=== PATIENT | female | born 1980 | race African-American/Black ===

== ENCOUNTER 2024-11-14 12:50 | Emergency (ER) | payer OTHER ==
[2024-11-14 13:04] LABS: Absolute Basophils 0.1 K/uL (0-0.5); Absolute Eosinophils 0.3 K/uL (0-0.5); Absolute Lymphocytes (CBC) 3.4 K/uL (0.7-4.9); Absolute Monocytes 0.8 K/uL (0.1-1.3); Absolute Neutrophil 6.2 K/uL (1.8-8.0); Basophils % 0.5 % (0-1.3); Eosinophils % 2.9 % (0-4.4); Hematocrit 42.7 % (36.0-45.0); Hemoglobin 14.3 g/dL (12.0-15.0); Lymphocytes % 31.4 % (15.3-44.8); MCH 29.3 pg (27.0-35.0); MCHC 33.5 g/dL (32.0-36.0); MCV 87.6 fL (80-100); MPV 8.5 fL (7.6-11.3); Monocytes % 7.4 % (3.3-12.3); Neutrophils % 57.8 % (41.7-73.7); Nucleated Red Blood Cells % 0.1 % (0-0); Platelets 250 thou/uL (152-406); RBC Red Blood Cell Count 4.88 M/uL (3.86-4.86); Red Cell Distribution Width 15.5 % (12.1-15.2)
[2024-11-14] MEDS ORDERED: HYDROCODONE/APAP 5/325 MG TAB ONE (13:04)
[2024-11-14 13:14] LABS: Specific Gravity > 1.030 (1.005-1.030)
[2024-11-14 13:16] LABS: Specific Gravity > 1.030 (1.005-1.030); Urine Bacteria 20-50 /HPF (<20); Urine Bilirubin NEGATIVE (Negative); Urine Blood Trace (Negative); Urine Clarity Turbid (Clear); Urine Color Yellow (Yellow); Urine Culture Reflex Order NOT NEEDED; Urine Glucose NEGATIVE (Negative); Urine Ketones NEGATIVE (Negative); Urine Microscopic Reflex YN ORDER UMIC; Urine Mucus Slight /HPF (None Seen); Urine Nitrite NEGATIVE (Negative); Urine Protein TRACE (Negative); Urine RBC <5 /HPF (None Seen); Urine Urobilinogen Normal (Normal); Urine WBC <5 /HPF (<5); Urine pH 6.5 (5.0-7.0)
[2024-11-14 13:23] LABS: ALT/SGPT 18 U/L (13-56); Albumin 3.5 g/dL (3.4-5.0); Albumin/Globulin Ratio 1.1 (1.1-1.8); Alkaline Phosphatase 48 U/L (45-117); Anion Gap 7.6 mEq/L (5.0-15.0); BUN Blood Urea Nitrogen 15 mg/dL (7-18); Bicarbonate 25 mEq/L (21-32); Bilirubin Total 0.2 mg/dL (0.2-1.0); Globulin 3.3 g/dL (2.3-3.5); Glomerular Filtration Rate 103 ml/min (=/>90); Glucose Level 93 mg/dL (74-106); Lipase 33 U/L (13-75); Potassium 3.6 mEq/L (3.5-5.1); Protein, Total 6.8 g/dL (6.4-8.2); Sodium Level 138 mEq/L (136-145)
[2024-11-14 13:24] LABS: AST/SGOT < 10 U/L (15-37)
--- NOTE | 2024-11-14 14:05 | RAD REPORT ---
EXAMINATION: Abdomen Pelvis W Contrast CLINICAL INDICATION: Female, 44 years old.ABD PAIN TECHNIQUE: CT abdomen and pelvis was performed, after the administration of [facility] Axial, sagittal and coronal reconstructions were obtained. One or more of the following dose reduction techniques were used: Automated exposure control, adjustment of the mA and/o r kV according to patient size, and/or iterative reconstruction. Unless otherwise specified, incidental findings do not require dedicated imaging follow-up. [id number]. COMPARISON: No prior exam. FINDINGS: LOWER CHEST: No acute process identified.No significant pericardial effusion. Mild circumferential th ickening of the distal esophagus which could reflect esophagitis. UPPER GI: No significant abnormality. LIVER: No significant focal abnormality. GALLBLADDER/BILE DUCTS: No biliary ductal dilatation.? PANCREAS: No mass, ductal dilation, or aldair-pancreatic fluid. SPLEEN: Unremarkable. ADRENALS: No adrenal masses. KIDNEYS AND URETERS: No hydronephrosis.No suspicious renal mass.No renal calculi. ABDOMINAL AORTA AND OTHER VESSELS: Normal caliber aorta and IVC. PERITONEUM: No abnormal free fluid. No free air. LYMPH NODES: No pathologic lymphadenopathy. ABDOMINAL WALL: Small fat containing umbilical hernia. SMALL BOWEL/COLON: Small bowel has normal course and caliber. No colonic wall thickening or pericolon ic inflammatory changes.Normal appendix. Mild diverticulosis without diverticulitis. Mild formed stool burden. URINARY BLADDER: Underdistended but grossly unremarkable. REPRODUCTIVE ORGANS: No pathologic process. MUSCULOSKELETAL: No acute or suspicious osseous abnormality. ADDITIONAL FINDINGS: None. IMPRESSION: No acute findings within the abdomen or pelvis. No bowel obstruction. Incidental findings as noted above.
--- NOTE | 2024-11-14 14:29 | EDPHYS ---
Physician Documentation [facility] Name: Suyapa Esparza Age: 44 yrs Sex: Female : 1980 Arrival Date: 11/14/2024 Time: 12:50 Bed 19 Private MD: ED Physician Ron Latham HPI: 11/14 13:31 This 44 yrs old Black Female presents to ER via EMS with complaints of abd pain. rn 13:32 Onset: The symptoms/episode began/occurred 3 day(s) ago. The symptoms do not radiate. rn Associated signs and symptoms: Pertinent positives: constipation, Pertinent negatives: blood in stools, fever. The symptoms are described as achy, crampy. Modifying factors: The symptoms are alleviated by nothing, the symptoms are aggravated by nothing. The patient has not experienced similar symptoms in the past. Patient reports mid abdominal pain all the way across her abdomen. Has been having constipation for 3 days, abdominal pain began today. Had bowel movement prior to arrival and was loose stool but nonbloody. No fever or chills. No trauma. Patient reports fall at work in the last couple weeks, prescribed muscle relaxer and steroids but no pain medication. States was evaluated at an urgent care for Workmen's Comp. and was determined to have some sort of back injury.. Historical: - Allergies: 12:52 No Known Allergies; ld1 - Home Meds: 12:52 None [Active]; ld1 - PMHx: 12:52 None; ld1 - PSHx: 12:52 None; ld1 - Immunization history:: Adult Immunizations up to date. - Infectious Disease History:: Denies. - Social history:: Smoking status: Patient denies any tobacco usage or history of. - Family history:: not pertinent. - Hospitalizations: : No recent hospitalization is reported. ROS: 13:32 Constitutional: Negative for fever, chills, and weight loss, Cardiovascular: Negative rn for chest pain, palpitations, and edema, Respiratory: Negative for shortness of breath, cough, wheezing, and pleuritic chest pain, Abdomen/GI: Positive for abdominal pain with constipation MS/Extremity: Negative for injury and deformity, Neuro: Negative for headache, weakness, numbness, tingling, and seizure, Exam: 13:32 Constitutional: This is a well developed, well nourished patient who is awake, alert, rn and in no acute distress. Cardiovascular: Regular rate and rhythm. No pulse deficits. Respiratory: No increased work of breathing, no retractions or nasal flaring. Abdomen/GI: Soft, mid abdominal tenderness without guarding or rebound. No peritoneal signs. No distention. Skin: Warm, dry MS/ Extremity: Pulses equal, no cyanosis Vital Signs: 12:57 Weight 72 kg; Height 5 ft. 4 in. ; Pain 7/10; ld1 13:04 BP 123 / 72; Pulse 73; Resp 18; Temp 98.3(O); Pulse Ox 100% on R/A; ld1 14:42 BP 122 / 65; Pulse 71; Resp 18; Pulse Ox 100% on R/A; ld1 12:57 Body Mass Index 27.25 (72.00 kg, 162.56 cm) ld1 12:57 Pain Scale: Adult ld1 MDM: 12:52 Medical Screening Exam initiated rn 13:34 ED course: EMS reported patient was hyperventilating and complaining of numbness and rn tingling all over as well as cramping in the hands and the feet. They coached her to slow her breathing down and symptoms resolved.. 14:27 Differential diagnosis: bowel obstruction, diverticulitis, non-specific abd pain, rn pancreatitis, Peptic Ulcer Disease, Perf. Duodenal Ulcer, Perf. Gastric Ulcer, Ureterolithiasis. Data reviewed: vital signs, nurses notes, lab test result(s), radiologic studies, CT scan, and as a result, I will discharge patient. Counseling: I had a detailed discussion with the patient and/or guardian regarding the historical points, exam findings, and any diagnostic results supporting the discharge/admit diagnosis, lab results, radiology results, the need for outpatient follow up, to return to the emergency department if symptoms worsen or persist or if there are any questions or concerns that arise at home. Response to treatment: the patient's symptoms have markedly improved after treatment, and as a result, I will discharge patient. Special discussion: Based on the patient's Hx, exam, and Dx evaluation, there is no indication for emergent surgery or inpatient Tx. It is understood by the patient/guardian that if the Sx's persist or worsen they need to return immediately for re-evaluation. I discussed with the patient/guardian in detail that at this point there is no indication for admission to the hospital. It is understood, however, that if the symptoms persist or worsen the patient needs to return immediately for re-evaluation. ED course: No acute findings and workup. CT abdomen pelvis without acute findings. Shows possible esophagitis but patient not reporting upper abdominal or chest pain. Will discharge home with antacid medication and given return precautions. Given patient had not had bowel movement in 3 days could be related to constipation or other bowel issues. Recommend GI follow-up if symptoms return or needs to return if symptoms worsen.. 11/14 12:52 Order name: CBC with Diff; Complete Time: 13:07 rn 11/14 12:52 Order name: CMP; Complete Time: 13:31 rn 11/14 12:52 Order name: Lipase; Complete Time: 13:31 rn 11/14 12:52 Order name: Test, Urine; Complete Time: 13:31 rn 11/14 12:52 Order name: Urinalysis w/ reflexes; Complete Time: 13:31 rn 11/14 12:52 Order name: CT Abd/Pelvis - IV Contrast Only; Complete Time: 14:05 rn 11/14 12:52 Order name: IV Saline Lock; Complete Time: 12:57 rn 11/14 12:52 Order name: Labs collected and sent; Complete Time: 12:57 rn Administered Medications: 13:18 Drug: HYDROcodone-acetaminophen PO 5 mg-325 mg 1 tabs PO once Route: PO; ld1 Disposition Summary: 11/14/24 14:28 Discharge Ordered Notes: Location: Home rn Problem: new rn Symptoms: have improved rn Condition: Stable rn Diagnosis - Abdominal pain, unspecified rn Followup: rn - With: Private Physician - When: As needed - Reason: Recheck today's complaints, Re-evaluation by your physician Discharge Instructions: - Discharge Summary Sheet rn - Abdominal Pain, Adult rn - Esophagitis rn - Pain Without a Known Cause rn Forms: - Medication Reconciliation Form rn - Antibiotic 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 EDMS EDMS 12:53 12:53 COMPREHENSIVE METABOLIC PANEL+C.LAB.BRZ ordered. EDMS EDMS 12:53 12:53 LIPASE+C.LAB.BRZ ordered. EDMS EDMS 12:53 12:53 Test, Urine+UC.LAB.BRZ ordered. EDMS EDMS 12:53 12:53 Urinalysis+U.LAB.BRZ ordered. EDMS EDMS 12:53 12:53 Abdomen Pelvis W Con+CT.RAD.BRZ ordered. EDMS EDMS
--- NOTE | 2024-11-14 14:29 | ER ---
Nurse's Notes [facility] Name: Suyapa Esparza Age: 44 yrs Sex: Female : 1980 Arrival Date: 11/14/2024 Time: 12:50 Bed 19 Private MD: Diagnosis: Abdominal pain, unspecified Presentation: 11/14 12:53 Chief complaint: EMS states: toned out to patient home for constipation X 3 days - ld1 unable to get off of toilet. ABD pain. Coronavirus screen: At this time, the client does not indicate any symptoms associated with coronavirus-19. Ebola Screen: No symptoms or risks identified at this time. Initial Sepsis Screen: Does the patient meet any 2 criteria? No. Patient's initial sepsis screen is negative. Does the patient have a suspected source of infection? No. Patient's initial sepsis screen is negative. Risk Assessment: Do you want to hurt yourself or someone else? Patient reports no desire to harm self or others. Onset of symptoms was November 14, 2024. 12:53 Method Of Arrival: EMS: [facility] ld1 12:53 Acuity: VIC 3 ld1 Triage Assessment: 12:53 General: Appears in no apparent distress. comfortable, Behavior is calm, cooperative, ld1 appropriate for age. Pain: Complains of pain in abdomen Pain does not radiate. Pain currently is 8 out of 10 on a pain scale. Quality of pain is described as aching, throbbing, Pain began 2-3 days ago. Is continuous. EENT: No signs and/or symptoms were reported regarding the EENT system. Neuro: Level of Consciousness is awake, alert, obeys commands, Oriented to person, place, time, situation. Cardiovascular: Capillary refill < 3 seconds Patient's skin is warm and dry. Respiratory: Airway is patent Respiratory effort is even, unlabored. GI: Abdomen is round non-distended, Reports lower abdominal pain, upper abdominal pain, constipation. : No signs and/or symptoms were reported regarding the genitourinary system. Derm: No signs and/or symptoms reported regarding the dermatologic system. Musculoskeletal: No signs and/or symptoms reported regarding the musculoskeletal system. Historical: - Allergies: 12:52 No Known Allergies; ld1 - Home Meds: 12:52 None [Active]; ld1 - PMHx: 12:52 None; ld1 - PSHx: 12:52 None; ld1 - Immunization history:: Adult Immunizations up to date. - Infectious Disease History:: Denies. - Social history:: Smoking status: Patient denies any tobacco usage or history of. - Family history:: not pertinent. - Hospitalizations: : No recent hospitalization is reported. Screenin:55 [facility] [place] ED Fall Risk Assessment (Adult) History of falling in the last 3 months, ld1 including since admission No falls in past 3 months (0 pts) Confusion or Disorientation No (0 pts) Intoxicated or Sedated No (0 pts) Impaired Gait No (0 pts) Mobility Assist Device Used No (0 pt) Altered Elimination No (0 pt) Score/Fall Risk Level 0 - 2 = Low Risk Oriented to surroundings, Hourly rounding (assess needs \T\ fall precautionary measures) done. Abuse screen: Denies threats or abuse. Denies injuries from another. Nutritional screening: No deficits noted. Tuberculosis screening: No symptoms or risk factors identified. Assessment: 12:55 Reassessment: See triage assessment. ld1 14:42 Reassessment: Patient appears in no apparent distress at this time. No changes from ld1 previously documented assessment. Patient and/or family updated on plan of care and expected duration. Pain level reassessed. Patient is alert, oriented x 3, equal unlabored respirations, skin warm/dry/pink. Vital Signs: 12:57 Weight 72 kg; Height 5 ft. 4 in. ; Pain 7/10; ld1 13:04 BP 123 / 72; Pulse 73; Resp 18; Temp 98.3(O); Pulse Ox 100% on R/A; ld1 14:42 BP 122 / 65; Pulse 71; Resp 18; Pulse Ox 100% on R/A; ld1 12:57 Body Mass Index 27.25 (72.00 kg, 162.56 cm) ld1 12:57 Pain Scale: Adult ld1 ED Course: 12:52 Patient arrived in ED. rn 12:52 Ron Latham MD is Attending Physician. rn 12:52 Randi Strong RN is Primary Nurse. ld1 12:53 Arm band placed on right wrist. ld1 12:54 Triage completed. ld1 12:55 Patient has correct armband on for positive identification. Placed in gown. Bed in low ld1 position. Call light in reach. Side rails up X2. Pulse ox on. NIBP on. Door closed. Noise minimized. Warm blanket given. 12:55 No provider procedures requiring assistance completed. Maintain EMS IV. Dressing ld1 intact. Good blood return noted. Site clean \T\ dry. Gauge \T\ site: 20G RAC. 13:54 CT Abd/Pelvis - IV Contrast Only In Process Unspecified. EDMS 14:42 IV discontinued, intact, bleeding controlled, No redness/swelling at site. ld1 Administered Medications: 13:18 Drug: HYDROcodone-acetaminophen PO 5 mg-325 mg 1 tabs PO once Route: PO; ld1 Medication: 12:55 VIS not applicable for this client. ld1 Outcome: 14:28 Discharge ordered by . rn 14:42 Discharged to home ambulatory, ld1 14:42 Condition: stable 14:42 Discharge instructions given to patient, family, Instructed on discharge instructions, follow up and referral plans. medication usage, Demonstrated understanding of instructions, follow-up care, medications, Prescriptions given X 1, 14:42 Patient left the ED. ld1 Signatures: Dispatcher [employer] EDMS Ron Latham MD MD rn Sims, Lauren, RN RN ld1
[2024-11-14 15:01] VITALS: TEMP 98.3; O2SAT 100
[2024-11-14 15:02] VITALS: BP 122/65
== END 2024-11-14 14:42 | disposition home or self-care (01) ==
LOC: ER 12:50
DX: R10.9 Unspecified abdominal pain (principal); K59.00 Constipation, unspecified
CPT/HCPCS: 85025; 81001; 36415; 81025; 83690; 80053; 74177; 99284; Q9967